=== PATIENT | female | born 1990 | race Caucasian/White ===

== ENCOUNTER 2017-04-10 22:25 | Outpatient (CLI) | payer OTHER ==
[2017-04-11 00:02] LABS: ADD UMIC YES; UR ASCORBIC ACID NEGATIVE (NEGATIVE); UR BACTERIA FEW /HPF (NONE SEEN); UR BILIRUBIN (Dip) NEGATIVE (NEGATIVE); UR BLOOD (Dip) 1+ mg/dL (NEGATIVE); UR CLARITY CLEAR (CLEAR); UR COLOR STRAW (YELLOW); UR GLUCOSE (Dip) NEGATIVE (NEGATIVE); UR KETONES (Dip) NEGATIVE (NEGATIVE); UR LEUKOCYTE ESTERASE (Dip) 2+ Leu/ul (NEGATIVE); UR NITRITE (Dip) NEGATIVE (NEGATIVE); UR RBC 1 /HPF (0-5); UR SPECIFIC GRAVITY (Dip) 1.003 (1.003-1.030); UR TOTAL PROTEIN (Dip) NEGATIVE (NEGATIVE); UR UROBILINOGEN (Dip) NEGATIVE (NEGATIVE); UR WBC 1 /HPF (0-5)
[2017-04-11] MEDS: ACETAMINOPHEN 500 MG TAB PO (00:08)
[2017-04-11 00:11] LABS: RUPTURE FETAL MEMBRANES NEGATIVE (NEGATIVE)
[2017-04-11] MEDS: HYDROCODONE/APAP (5/325) TAB PO (01:00)
== END 2017-04-11 02:10 | disposition home or self-care (01) ==
LOC: OBT 22:25 → L-D 22:27
DX: O62.9 Abnormality of forces of labor, unspecified (principal); Z3A.38 38 weeks gestation of pregnancy
CPT/HCPCS: 76815; 81001; 84112

== ENCOUNTER 2017-04-22 15:00 | Inpatient (IN) | payer OTHER ==
[2017-04-22] MEDS ORDERED: IBUPROFEN 600 MG TAB PO (17:30)
[2017-04-22] MEDS ORDERED: BUTORPHANOL 2 MG INJ IV (17:30)
[2017-04-22] MEDS ORDERED: CARBOPROST 250 MCG INJ IM (17:30)
[2017-04-22] MEDS ORDERED: LIDOCAINE 1% (MPF) 30 ML INJ INJ (17:30)
[2017-04-22] MEDS ORDERED: MISOPROSTOL 200 MCG TAB PR (17:30)
[2017-04-22] MEDS ORDERED: METHYLERGONOVINE 0.2 MG INJ IM (17:30)
[2017-04-22] MEDS ORDERED: OXYTOCIN 30 UNITS/LR 500 ML IV ×2 (17:30→20:00)
[2017-04-22] MEDS: LACTATED RINGER'S 1,000 ML IV ×2 (17:30→18:15)
[2017-04-22 17:48] LABS: ADD MAN DIFF? NO
[2017-04-22 17:51] LABS: BASOPHILS % 0.3 % (0.0-2.0); EOSINOPHILS % 0.3 % (0.0-7.0); HEMATOCRIT 36.4 % (37.0-47.0); LYMPHOCYTES # 2.8 10^3/ul (0.8-2.9); LYMPHOCYTES % 28.3 % (15.0-51.0); MEAN CORPUSCULAR HEMOGLOBIN 28.9 pg (29.0-33.0); MEAN CORPUSCULAR VOLUME 87.7 fl (82.0-101.0); MEAN PLATELET VOLUME 12.2 fl (7.4-10.4); MONOCYTE # 0.4 10^3/ul (0.3-0.9); NEUTROPHIL # 6.5 10^3/ul (1.6-7.5); NEUTROPHILS % 66.3 % (39.0-77.0); PLATELET COUNT 140 10^3/UL (140-415); RED BLOOD COUNT 4.15 10^6/ul (4.20-5.40); RED CELL DISTRIBUTION WIDTH 13.4 % (11.5-14.5)
[2017-04-22 17:51] LABS: WHITE BLOOD COUNT 9.8 10^3/ul (4.8-10.8)
[2017-04-22 18:05] LABS: INR 0.88; PT RATIO 0.9
[2017-04-22 18:06] LABS: PARTIAL THROMBOPLASTIN TIME 24.5 Sec (25.0-35.0)
[2017-04-22 18:39] LABS: HEPATITIS B SURFACE ANTIGEN NEGATIVE (NEGATIVE)
[2017-04-22] MEDS: OXYTOCIN 30 UNITS/LR 500 ML IV (22:07)
[2017-04-22 22:37] LABS: RAPID PLASMA REAGIN NONREACTIVE (NR)
[2017-04-23] MEDS: LACTATED RINGER'S 1,000 ML IV ×3 (02:51→07:20)
[2017-04-23] MEDS ORDERED: FENTAnyl 2MCG/ML-ROPIV 0.2% 100 ML (04:28)
[2017-04-23] MEDS ORDERED: NALOXONE (0.4 MG/ML) INJ IV (05:00)
[2017-04-23] MEDS ORDERED: FENTAnyl 2MCG/ML-ROPIV 0.2% 100 ML BAG EPI (05:00)
[2017-04-23] MEDS: ONDANSETRON 4 MG INJ IV (05:11)
[2017-04-23] MEDS: OXYTOCIN 30 UNITS/LR 500 ML IV ×2 (08:02→12:16)
[2017-04-23] MEDS ORDERED: OXYCODONE/ASPIRIN (4.88/325) TAB PO ×2 (10:30)
[2017-04-23] MEDS ORDERED: HYDROCODONE/APAP (5/325) TAB PO ×2 (10:30)
[2017-04-23] MEDS ORDERED: ACETAMINOPHEN 325 MG TAB PO (10:30)
[2017-04-23] MEDS ORDERED: ONDANSETRON 4 MG INJ IV (10:30)
[2017-04-23] MEDS ORDERED: DIBUCAINE 1% 30 GM OINT PR (10:30)
[2017-04-23] MEDS: BENZOCAINE 20% 56 ML SPRAY TOP (12:17)
[2017-04-23] MEDS: IBUPROFEN 600 MG TAB PO ×2 (12:17→17:18)
[2017-04-23] MEDS: LANOLIN 7 GM TUBE TOP (12:18)
[2017-04-23] MEDS: WITCH HAZEL/GLYCERIN PAD PR (12:18)
[2017-04-23] MEDS: SENNA/DOCUSATE NA (8.6MG/50MG) TAB PO (20:46)
[2017-04-24] MEDS: IBUPROFEN 600 MG TAB PO ×5 (00:42→23:17)
[2017-04-24] MEDS: SENNA/DOCUSATE NA (8.6MG/50MG) TAB PO ×2 (08:41→20:15)
[2017-04-24] MEDS: PRENATAL VITAMIN PO (08:41)
[2017-04-24 09:11] LABS: ADD MAN DIFF? NO
[2017-04-24 09:37] LABS: BASOPHILS % 0.4 % (0.0-2.0); EOSINOPHILS # 0.1 10^3/ul (0.0-0.5); EOSINOPHILS % 0.8 % (0.0-7.0); HEMATOCRIT 33.7 % (37.0-47.0); HEMOGLOBIN 11.2 g/dl (12.0-16.0); LYMPHOCYTES % 37.1 % (15.0-51.0); MEAN CORPUSCULAR HEMOGLOBIN 29.2 pg (29.0-33.0); MEAN CORPUSCULAR HGB CONC 33.2 g/dl (32.0-37.0); MEAN CORPUSCULAR VOLUME 87.8 fl (82.0-101.0); MEAN PLATELET VOLUME 12.4 fl (7.4-10.4); MONOCYTE # 0.4 10^3/ul (0.3-0.9); MONOCYTES % 4.1 % (0.0-11.0); NEUTROPHIL # 6.2 10^3/ul (1.6-7.5); NEUTROPHILS % 56.9 % (39.0-77.0); PLATELET COUNT 131 10^3/UL (140-415); RED BLOOD COUNT 3.84 10^6/ul (4.20-5.40); RED CELL DISTRIBUTION WIDTH 13.9 % (11.5-14.5)
[2017-04-24 09:37] LABS: WHITE BLOOD COUNT 10.8 10^3/ul (4.8-10.8)
[2017-04-25] MEDS: IBUPROFEN 600 MG TAB PO ×2 (05:54→11:30)
[2017-04-25] MEDS: MEASLES,MUMPS,RUBELLA VACCINE INJ SC* (07:19)
[2017-04-25] MEDS: SENNA/DOCUSATE NA (8.6MG/50MG) TAB PO (09:22)
[2017-04-25] MEDS: PRENATAL VITAMIN PO (09:22)
[2017-04-25] MEDS: BENZOCAINE 20% 56 ML SPRAY TOP (11:32)
[2017-04-25] MEDS: WITCH HAZEL/GLYCERIN PAD PR (11:32)
[2017-04-25] MEDS: LANOLIN 7 GM TUBE TOP (11:32)
[2017-04-26] MEDS ORDERED: INFLUENZA VIRUS VACCINE 0.5 ML (DISPENSING) IM* (09:00)
== END 2017-04-25 15:15 | disposition home or self-care (01) | DRG 775 ==
LOC: PP1 04-23 10:50 → L-D 15:00 → PP1 04-23 17:14
PROVIDERS: Obstetrics & Gynecology
PROC: 10E0XZZ Delivery of Products of Conception, External Approach (ICD-10-PCS; principal; 2017-04-23)
PROC: 0HQ9XZZ Repair Perineum Skin, External Approach (ICD-10-PCS; 2017-04-23)
PROC: 3E033VJ Introduction of Other Hormone into Peripheral Vein, Percutaneous Approach (ICD-10-PCS; 2017-04-23)
DX: O48.0 Post-term pregnancy (principal); O24.429 Gestational diabetes mellitus in childbirth, unspecified control; Z3A.40 40 weeks gestation of pregnancy; O70.0 First degree perineal laceration during delivery; Z37.0 Single live birth
CPT/HCPCS: 62319; 85025; 85610; 85730; 86592; 86850; 86900; 86901; 87340